=== PATIENT | female | born 1980 | race Two or more races ===

== ENCOUNTER 2018-02-21 21:03 | Emergency (ER) | payer OTHER, MEDICAID ==
[~2018-02-21] VITALS: Ht 157.5 cm; Wt 81.6 kg
[2018-02-21 21:17] VITALS: BP 105/70
== END 2018-02-21 21:30 | disposition left against medical advice (07) ==
LOC: EDBD 21:03 → ER 21:03
DX: M54.5 Low back pain (principal); R51 Headache; Z53.21 Procedure and treatment not carried out due to patient leaving prior to being seen by health care provider; V89.2XXA Person injured in unspecified motor-vehicle accident, traffic, initial encounter; Y93.89 Activity, other specified; Y99.8 Other external cause status; Y92.89 Other specified places as the place of occurrence of the external cause